=== PATIENT | female | born 1980 | race Caucasian/White ===

== ENCOUNTER 2023-09-05 14:28 | Emergency (ER) | payer BC, SELFPAY ==
[2023-09-05 14:31] VITALS: BP 169/97; RESP 20; TEMP 36.1; O2SAT 97; BMI 39.5
--- NOTE | 2023-09-05 15:41 | W.ED.CHARTNO ---
ED Chart Note Chart Note Details Date: 09/05/23 Details: Left waiting room without being seen by provider
== END 2023-09-05 15:15 | disposition left against medical advice (07) ==
LOC: ED 15:12
PROVIDERS: Emergency Provider Student in an Organized Health Care Education/Training Program
DX: Z53.21 Procedure and treatment not carried out due to patient leaving prior to being seen by health care provider (principal)

== ENCOUNTER 2023-10-02 12:23 | Emergency (ER) | payer BC, SELFPAY ==
[2023-10-02 12:47] VITALS: BP 158/95; PULSE 84; RESP 28; TEMP 35.8; O2SAT 98; BMI 39.5
[2023-10-02 13:06] LABS: Appearance Urine Cloudy (Clear); Bilirubin Urine 1+ (Negative); Blood Urine Trace-intact (Negative); Color Urine Dark yellow (Yellow); Glucose Urine Negative (Negative); Ketones Urine Negative (Negative); Leukocyte Esterase Urine Negative (Negative); Nitrite Urine Negative (Negative); Protein Urine Negative (Negative); Specific Gravity Urine >= 1.030 (1.000-1.030); Urobilinogen Urine 0.2 (0.2-1.0); pH Urine 5.5 (5.0-8.5)
[2023-10-02 13:16] LABS: RBC Urine 0-2 (0-2)
[2023-10-02 13:17] LABS: Bacteria Urine Few; Mucus Urine Many; Squamous Epithelial Cell Urine Moderate (None-Few)
--- NOTE | 2023-10-02 13:30 | CRLHL7_ITS ---
For Patients: As a result of the Century Cures Act, medical imaging exams and procedure reports are released immediately into your electronic medical record. You may view this report before your referring provider. If you have questions, please contact your health care provider. INDICATION: RUQ, RT FLANK PAIN, RECENT TODD. TECHNIQUE: CT abdomen and pelvis acquired with 100 cc Omnipaque 350 IV contrast. COMPARISON: None. FINDINGS: Lower chest: Unremarkable. Liver: Unremarkable. Normal in size and attenuation. No suspicious masses. Gallbladder and bile ducts: Gallbladder is absent. No intra or extrahepatic biliary duct dilation. Pancreas: Unremarkable. No mass or inflammation. Spleen: Unremarkable. Normal in size. No masses. Adrenal glands: Unremarkable. No nodules. Kidneys: Unremarkable. No suspicious masses, stones, or hydronephrosis. GI tract: Small hiatal hernia. Normal in caliber. No sign of mass or inflammation. Normal appendix. Vasculature: Abdominal aorta is normal in caliber. Mesenteric arteries are patent. Lymph nodes: No lymphadenopathy. Peritoneum/Abdominal Wall: Unremarkable. No sign of mass or infiltration. No free air or significant free fluid. Pelvis: Right adnexal fat containing lesion, likely dermoid cyst. . Bones: Unremarkable for age. IMPRESSION: 1. No acute intraabdominal process identified 2. Status post cholecystectomy 3. Suspected right adnexal dermoid cyst. Can be confirmed with outpatient ultrasound. Please note that all CT scans at this facility use dose modulation, iterative reconstruction, and/or weight-based dosing when appropriate to reduce radiation dose to as low as reasonably achievable. Dictated by Elisa De León MD @ 10/02/2023 5:32:59 PM (Electronically Signed)
--- NOTE | 2023-10-02 13:32 | ED_ITS ---
HPI - General Adult General Date Seen: 10/02/23 Chief complaint: Abdominal Pain Stated complaint: abdominal pain Time Seen by Provider: 10/02/23 13:04 History of Present Illness HPI narrative: This is a pleasant but previously healthy 42-year-old female who is status post appendectomy, had cholecystectomy done for symptomatic biliary colic as an outpatient surgery in [place] about 2 months ago, has a known dermoid cyst on her right ovary (sounds like small and stable over time) but otherwise healthy presenting to the ER today for an episode of severe searing/burning right upper quadrant and right flank pain. She recalls that she did have episodes of right upper quadrant wall pain with radiation to her shoulder off and on for quite some time before she was finally diagnosed with symptomatic gallstones. She had her surgery done to get her gallbladder out on an outpatient basis at a surgery center in [place]. Surgery was about 2 or 3 months ago. It sounds like she did not have any acute cholecystitis. She did not have an intraoperative cholangiogram and it sounds like there was no suspicion for any choledocholithiasis. She had re-covered well from her surgery. No postop site infections or complications. She recalls that she had an episode very severe pain in her right upper quadrant right flank that happened about a month ago. No clear trigger for onset. Not related to food, position, activity. No other symptoms with it such as fever, vomiting, urinary symptoms, or change in bowel habits. The pain resolved on its own about a month ago. She has not had any trouble since then. She had another episode of pain that started about 11:00 a.m. this morning, before she ate lunch. He was again in the right upper quadrant and radiated to the right flank. It was agonizing and felt like a hot poker poking into her right upper quadrant. It was actually worse than her previous gallstone pain. She was nauseous during the pain but no other symptoms. No vomiting. Bowel movements normal. Urination normal. Mental cycle has been normal and last period was about 2 weeks ago. She has a known dermoid cyst on her right ovary but was not having any lower pelvic pain. No rash. No blisters. No other recent illnesses. No injury. The pain did not radiate up to her chest or down to her legs. Since she has arrived in the ER the pain is actually fading and is now almost gone again. Related Data Home Medications ?Medication ?Instructions ?Recorded ?Confirmed escitalopram oxalate 10 mg tablet 10 mg PO DAILY 09/05/23 10/02/23 (Lexapro) Allergies Allergy/AdvReac Type Severity Reaction Status Date / Time No Known Drug Allergies Allergy Verified 10/02/23 15:52 Exam Narrative: Exam Narrative: Constitutional: Appears well-developed and well-nourished. Alert. Conversant. Non toxic. HENT: Head: Atraumatic. Nose: Nose normal. Mouth/Throat: Oral mucosa is clear and moist. no trismus. Eyes: Conjunctivae normal. EOM normal. Pupils equal, round, and reactive to light. No scleral icterus. Neck: Normal range of motion. Neck supple. No tracheal deviation present. Cardiovascular: Normal rate, regular rhythm. No gallop. No friction rub. No murmur heard. Symmetric radial artery pulses Pulmonary/Chest: Effort normal. No stridor. No respiratory distress. No wheezes. No rales. No rhonchi . No tenderness. Abdominal: Soft. Bowel sounds normal. No distension. No mass. Mild right upper quadrant and right CVA tenderness. No rebound. No guarding. Musculoskeletal: RUE: Normal range of motion. No tenderness. No deformity LUE: Normal range of motion. No tenderness. No deformity RLE: Normal range of motion. No edema. No tenderness. No deformity LLE: Normal range of motion. No edema. No tenderness. No deformity Lymph: No cervical adenopathy. Neurological: Alert and oriented to person, place, and time. Normal strength. CN II-VII intact. No sensory deficit. GCS eye subscore is 4. GCS verbal subscore is 5. GCS motor subscore is 6. Normal coordination Skin: No rash or shingles. Skin is warm and dry. No rash noted. No pallor. Normal capillary refill. Psychiatric: Normal mood. Normal affect. Const: Vital Signs, click to edit/add: Vital Signs - 24 hr 10/02/23 12:47 10/02/23 15:07 10/02/23 18:12 Temperature 96.4 F L Pulse Rate [Pulse Oximeter] 84 62 75 Respiratory Rate 28 H 20 16 Blood Pressure [Ri ght Upper Arm] 158/95 H 139/79 136/82 Pulse Oximetry 98 96 96 Oxygen Delivery Me thod Room Air Room Air Room Air Course Vital Signs Vital signs: Initial Vital Signs Temperature 96.4 F L 10/02/23 12:47 Temperature Source Temporal Artery Scan 10/02/23 12:47 Pulse Rate 84 10/02/23 12:47 Respiratory Rate 28 H 10/02/23 12:47 Blood Pressure 158/95 H 10/02/23 12:47 Blood Pressure Mean 116 H 10/02/23 12:47 Blood Pressure Position Sitting 10/02/23 12:47 Pulse Oximetry 98 10/02/23 12:47 Oxygen Delivery Method Room Air 10/02/23 12:47 Vital Signs Temperature 96.4 F L 10/02/23 12:47 Pulse Rate 84 10/02/23 12:47 Respiratory Rate 28 H 10/02/23 12:47 Blood Pressure 158/95 H 10/02/23 12:47 Pulse Oximetry 98 10/02/23 12:47 Oxygen Delivery Method Room Air 10/02/23 12:47 Temperature 96.4 F L 10/02/23 12:47 Pulse Rate 75 10/02/23 18:12 Respiratory Rate 16 10/02/23 18:12 Blood Pressure 136/82 10/02/23 18:12 Pulse Oximetry 96 10/02/23 18:12 Oxygen Delivery Method Room Air 10/02/23 18:12 Medical Decision Making MDM Narrative Medical decision making narrative: Presented to the Emergency Department with severe right upper quadrant and right flank abdominal pain. The differential diagnosis of abdominal pain includes: Appendicitis, Bowel Obstruction, Ulcer, Ischemia, retained common bile duct stone, bile leak, delayed presentation of post cholecystectomy infection, hepatitis,, Diverticulitis, Pancreatitis, UTI, kidney stone, Enteritis/Colitis, amongst many other etiologies. Laboratory testing does not reveal a cause for the patient's pain. Imaging is noted to be normal. The exact etiology of the abdominal pain is not clear at this time. No life threatening cause or need for emergent surgery or hospital admission is detected today. The patient was advised that if symptoms do not completely resolve within another 24hours re- evaluation with primary care or return to the ED is indicated. The patient also understands that if they worsen, they should return to the ER right away. I discussed the uncertainty about the diagnosis and answered the patient's questions. Abdominal pain return precautions discussed. Recommend outpatient follow-up with primary care or with her gallbladder surgeon for re-evaluation. Consider possible outpatient MRCP to look for retained common bile duct stone or endoscopy to look for possible duodenal ulcer or other cause for intermittent right upper quadrant pain. Precautions for return to the ER reviewed. Lab Data Labs: Lab Results 10/02/23 10/02/23 10/02/23 Range/Units 13:00 13:31 14:36 WBC 7.44 (4.50-11.00) K/uL RBC 4.95 (4.00-5.20) m/uL Hgb 12.9 (12.0-16.0) gm/dL Hct 40.5 (33.0-51.0) % MCV 82 (80-100) fL MCH 26 (26-34) pg MCHC 32 (32-36) gm/dL RDW Coeff of [place] 15.3 (11.5-15.5) % Plt Count 245 (140-440) K/uL Neut % (Auto) 54.3 (42.0-72.0) % Lymph % (Auto) 32.3 (20-44) % Meagher % (Auto) 11.8 H (0.0-11.0) % Eos % (Auto) 1.1 (0.0-7.0) % Baso % (Auto) 0.4 (0.0-3.0) % Neut # (Auto) 4.04 (1.7-7.0) K/uL Lymph # (Auto) 2.40 (0.90-2.90) K/uL Meagher # (Auto) 0.90 (0.00-0.90) K/UL Eos # (Auto) 0.08 (0.00-0.50) K/uL Baso # (Auto) 0.03 (0.00-0.30) K/uL Abs Immat Gran (auto) 0.01 (0.00-0.30) K/uL Imm/Tot Granulo (auto) 0.1 % Sodium 138 (135-149) mmol/L Potassium 4.0 (3.6-5.1) mmol/L Chloride 107 (96-114) mmol/L Carbon Dioxide 24 (20-32) mmol/L Anion Gap 7 (7-15) mEq/L BUN 11 (5-24) mg/dL Creatinine 0.7 (0.5-1.5) mg/dL Estimated Creat Clear 91.33 Estimated GFR 111 ml/min Glucose 91 (60-115) mg/dL Calcium 9.0 (8.4-10.6) mg/dL Total Bilirubin 1.1 (0.1-1.5) mg/dL AST 42 H (12-35) U/L ALT 23 (4-35) U/L Alkaline Phosphatase 75 (40-150) U/L Total Protein 8.0 (6.0-8.3) g/dL Albumin 4.7 (3.3-5.0) g/dL Lipase 81 (23-300) U/L Urine Color Dark yellow (Yellow) Urine Appearance Cloudy A (Clear) Urine pH 5.5 (5.0-8.5) Ur Specific Bivins >= 1.030 (1.000-1.030) Urine Protein Negative (Negative) Urine Glucose (UA) Negative (Negative) Urine Ketones Negative (Negative) Urine Blood Trace-intact A (Negative) Urine Nitrite Negative (Negative) Urine Bilirubin 1+ A (Negative) Urine Urobilinogen 0.2 (0.2-1.0) Ur Leukocyte Esterase Negative (Negative) Urine RBC 0-2 (0-2) Urine WBC 2-5 (0-5) Ur Squamous Epith Cells Moderate A (None-Few) Urine Bacteria Few A (None) Urine Mucus Many A (None) Urine HCG, Qual Negative (Negative) Imaging Data CT scan - abdomen: Attestation: I have reviewed the pertinent imaging results. Radiologist's impression: IMPRESSION: 1. No acute intraabdominal process identified 2. Status post cholecystectomy 3. Suspected right adnexal dermoid cyst. Can be confirmed with outpatient ultrasound. Discharge Plan Discharge Clinical Impression: Abdominal pain, RUQ Patient Disposition: Home, Self-Care Condition: Stable Instructions: Acute Abdominal Pain (ED) Additional Instructions: As we discussed, so for your laboratory workup and CT scan looks good. No signs of any serious explanation for your pain. We do not have any evidence for any retained common bile duct stones at this time. No sign of kidney stone or kidney infection. No sign of any internal bleeding or infection from her gallbladder surgery. No sign of any blockage in your intestines. However it is very important for you to follow-up with her surgeon and get further workup for these episodes of pain. If you have more episodes of pain or any problems, please come back to the ER, or see your doctor, right away. Prescriptions: No Action escitalopram oxalate [Lexapro] 10 mg tablet 10 mg PO DAILY Follow Up/Referrals: Provider,Not a Local [Primary Care Provider] - Stand Alone Forms: [employer] Info Instructions
[2023-10-02 14:04] LABS: Ur HCG Qualitative* Negative (Negative)
[2023-10-02 14:39] LABS: Basophils Absolute Auto 0.03 K/uL (0.00-0.30); Basophils Percent Auto 0.4 % (0.0-3.0); Eosinophils Absolute Auto 0.08 K/uL (0.00-0.50); Eosinophils Percent Auto 1.1 % (0.0-7.0); Hematocrit 40.5 % (33.0-51.0); Hemoglobin* 12.9 gm/dL (12.0-16.0); Immature Granulocytes Abs Auto 0.01 K/uL (0.00-0.30); Immature Granulocytes Pct Auto 0.1 %; Lymphocytes Percent Auto 32.3 % (20-44); Mean Corpuscular HGB Conc 32 gm/dL (32-36); Mean Corpuscular Hemoglobin 26 pg (26-34); Mean Corpuscular Volume 82 fL (80-100); Monocytes Percent Auto 11.8 % (0.0-11.0); Neutrophils Absolute Auto 4.04 K/uL (1.7-7.0); Neutrophils Percent Auto 54.3 % (42.0-72.0); Platelet Count* 245 K/uL (140-440); RDW Coefficient of Variation % 15.3 % (11.5-15.5); Red Blood Count 4.95 m/uL (4.00-5.20); White Blood Count* 7.44 K/uL (4.50-11.00)
[2023-10-02 14:43] LABS: Slide Review Reflex No
[2023-10-02 14:52] LABS: Albumin* 4.7 g/dL (3.3-5.0)
[2023-10-02 14:53] LABS: Chloride* 107 mmol/L (96-114); Sodium* 138 mmol/L (135-149)
[2023-10-02 14:55] LABS: Anion Gap 7 mEq/L (7-15); Aspartate Amino Transferase* 42 U/L (12-35); Bilirubin Total* 1.1 mg/dL (0.1-1.5); Carbon Dioxide* 24 mmol/L (20-32); Creatinine* 0.7 mg/dL (0.5-1.5); Est. Creatinine Clearance* 91.33; Estimated Glomerular Filt Rate 111 ml/min
[2023-10-02 14:56] LABS: Alanine Aminotransferase* 23 U/L (4-35); Alkaline Phosphatase* 75 U/L (40-150); Blood Urea Nitrogen* 11 mg/dL (5-24); Glucose* 91 mg/dL (60-115); Lipase* 81 U/L (23-300)
[2023-10-02 15:07] VITALS: BP 139/79; PULSE 62; RESP 20; O2SAT 96
[2023-10-02 18:12] VITALS: BP 136/82; PULSE 75; RESP 16; O2SAT 96
== END 2023-10-02 18:13 | disposition home or self-care (01) ==
PROVIDERS: Emergency Provider Emergency Medicine
DX: R10.11 Right upper quadrant pain (principal)
CPT/HCPCS: 36415; 74177; 80053; 81001; 81025; 83690; 85025; 87086; 99284; 99285; Q9967

== ENCOUNTER 2023-11-11 13:17 | Outpatient (CLI) | payer BC, SELFPAY ==
--- NOTE | 2023-11-11 13:45 | CRLHL7_ITS ---
For Patients: As a result of the Cures Act, medical imaging exams and procedure reports are released immediately into your electronic medical record. You may view this report before your referring provider. If you have questions, please contact your health care provider. INDICATION: Right upper quadrant abdominal pain. COMPARISON: CT abdomen pelvis with intravenous contrast October 02, 2023. Technique: MRCP. FINDINGS: Several cystic lesions identified in the liver. Difficult to differentiate between simple cysts versus cavernous hemangiomas vs other non benign lesions without intravenous contrast. Status post cholecystectomy. Nondilated extrahepatic common bile duct measuring 7.4 mm in diameter. No evidence of choledocholithiasis. Nondilated pancreatic duct. No evidence of dilatation of the intrahepatic biliary duct system. IMPRESSION: 1. Status post cholecystectomy. 2. No evidence of choledocholithiasis. 3. Multiple lesions in the liver probably represent either cyst or hemangioma; if clinically needed, suggest obtaining an MRI of the liver with intravenous contrast. Dictated by Brian Lacey MD @ 11/12/2023 12:27:31 PM (Electronically Signed)
== END 2023-11-11 13:18 | disposition home or self-care (01) ==
PROVIDERS: Visit Provider Surgery
DX: R10.11 Right upper quadrant pain (principal); K76.9 Liver disease, unspecified
CPT/HCPCS: 74181